=== PATIENT | female | born 1960 ===

== ENCOUNTER 2022-09-18 11:23 | Day surgery (SDC) | payer OTHER ==
[~2022-09-18 11:23] MED LIST: COZAAR50 MG PO; CRESTOR10 MG PO; GABAPENTIN400 MG PO
[2022-09-18] MEDS ORDERED: PERCOCET 5-3251 EACH PO (14:31)
[2022-09-18] MEDS ORDERED: NEURONTIN300 MG PO (14:31)
[2022-09-18] MEDS ORDERED: MIRALAX17 GM PO (14:31)
[2022-09-18] MEDS ORDERED: KETO10TA2 PO (16:27)
== END 2022-09-18 21:55 | disposition home or self-care (01) ==
LOC: CIR.AMB 11:23
PROVIDERS: ATTEND Surgery
DX: K40.90 Unilateral inguinal hernia, without obstruction or gangrene, not specified as recurrent (principal); K43.6 Other and unspecified ventral hernia with obstruction, without gangrene; I10 Essential (primary) hypertension; Z20.822 Contact with and (suspected) exposure to COVID-19; Z88.6 Allergy status to analgesic agent
CPT/HCPCS: 49650; 49594; C1781